=== PATIENT | female | born 1990 | race Caucasian/White ===

== ENCOUNTER 2023-01-06 07:50 | Inpatient (IN) | payer OTHER ==
[2023-01-05 12:39] VITALS: BMI 29.2
[2023-01-06] MEDS ORDERED: CITRIC ACID-SODIUM CITRATE 15 ML CUP PO ONE (08:18)
[2023-01-06] MEDS ORDERED: OXYTOCIN 10 UNIT/ML 1 ML VIAL IM PRN (08:18)
[2023-01-06] MEDS ORDERED: TRANEXAMIC 1,000 MG/100ML-NACL 1,000 MG in EMPTY BAG 1 BAG IV PRN (08:18)
[2023-01-06] MEDS ORDERED: miSOPROStoL 200 MCG TAB PO PRN (08:18)
[2023-01-06] MEDS ORDERED: CARBOPROST TROMETHAMINE 250 MCG/ML 1 ML AMP IM PRN (08:18)
[2023-01-06] MEDS ORDERED: METHYLERGONOVINE 0.2 MG/ML 1 ML AMP IM PRN (08:18)
[2023-01-06 08:32] LABS: Basophils % (A) 0 %; Eosinophils # (A) 0.1 k/uL (0-0.7); Eosinophils % (A) 1 %; HCT 36.7 % (34.0-46.0); HGB 13.3 gm/dL (11.4-16.0); Lymphocytes # (A) 1.5 k/uL (1.0-4.8); Lymphocytes % (A) 19 %; MCH 34.2 pg (25.0-35.0); MCHC 36.2 g/dL (31.0-37.0); MCV 94.4 fL (80.0-100.0); Mean Platelet Volume 8.7; Monocytes # (A) 0.3 k/uL (0-1.0); Monocytes % (A) 4 %; Neutrophils # (A) 5.6 k/uL (1.3-7.7); Neutrophils % (A) 72 %; Platelet Count 151 k/uL (150-450); RBC 3.89 m/uL (3.80-5.40); RDW 12.9 % (11.5-15.5); WBC 7.7 k/uL (3.8-10.6)
--- NOTE | 2023-01-06 09:36 | P.HPOB ---
History of Present Illness H&P Date: 01/06/23 Chief Complaint: Repeat section Ms. Moses is a 32 year old at 39 weeks and 0 days with EDC of 01/13/2023 (by LMP consistent with 7 week US) who presents to labor and delivery for scheduled repeat section. The has been complicated by Anti-Jka (Spence) Antibody positive antibody screen that has been too weak to titer. Left renal pelvic dilation was also noted on anatomy US. At 32 weeks the fetus was measuring in the 36%ile for growth. Additionally, the patient is Rh negative status and did receive rhogam on 08/15/2022. Finally, there is a 6 centimeter anterior subserosal fibroid noted in the left lateral lower uterine segment on ultrasound. Obstetric history: 1 FTCS secondary to breech presentation, 2 SABs. work-up: blood type is A negative, antibody screen positive for Anti- Jka (Spence) Antibody (too weak to titer), rubella immune, VDRL non-reactive, HBsAg negative, HIV negative, HCV Ab negative, gonorrhea negative, chlamydia negative, GBS negative. Past medical history: history of abnormal pap smear. Past Medical History Past Medical History: No Reported History History of Any Multi-Drug Resistant Organisms: None Reported Past Surgical History: Section Past Anesthesia/Blood Transfusion Reactions: No Reported Reaction Past Psychological History: No Psychological Hx Reported Smoking Status: Former smoker Additional Past Alcohol Use History / Comment(s): PRIOR TO -SOCIALLY Past Drug Use History: None Reported - Past Family History Mother Family Medical History: No Reported History Medications and Allergies Home Medications Medication Instructions Recorded Confirmed Type Aspirin [Adult Low Dose Aspirin EC] 81 mg PO DAILY 01/05/23 01/05/23 History Vit No.179/Iron/Folic 1 each PO DAILY 01/05/23 01/05/23 History [ Tablet] Allergies Allergy/AdvReac Type Severity Reaction Status Date / Time No Known Allergies Allergy Verified 01/05/23 12:16 Exam Vital Signs Temp Pulse Resp BP Pulse Ox 01/06/23 08:18 98.1 F 80 18 137/80 98 Intake and Output 01/05/23 01/06/23 01/06/23 22:59 06:59 14:59 Other: Weight 68.039 kg Results Result Diagrams: 01/06/23 08:16
[2023-01-06] MEDS ORDERED: NALBUPHINE 10 MG/ML (10 ML MDV) ONE (09:40)
[2023-01-06] MEDS ORDERED: OXYTOCIN 30 UNITS/500 ML NS BAG IV ONE (09:40)
[2023-01-06] MEDS ORDERED: ONDANSETRON 4 MG/2 ML VIAL ONE (09:40)
[2023-01-06] MEDS ORDERED: MORPHINE SULFATE (PF) 0.3 MG/0.3 ML SYR ONE (09:40)
[2023-01-06] MEDS ORDERED: KETOROLAC 15 MG/ML 1 ML VIAL ONE (09:40)
[2023-01-06] MEDS ORDERED: fentaNYL (PF) 50 MCG/ML 2 ML AMP ONE (09:40)
--- NOTE | 2023-01-06 11:15 | P.OP ---
Date of Procedure: 01/06/23 Preoperative Diagnosis: 1. Term IUP at 39 weeks and 1 day 2. History of prior section 3. Does not desire TOLAC 4. Large lower uterine segment fibroid, estimated 6 centimeters Postoperative Diagnosis: Same Procedure(s) Performed: Repeat Lower Transverse Section Implants: None Anesthesia: spinal Surgeon: Jessica Martinez General Maintenance Engineer #1: Rachell Arnold Estimated Blood Loss (ml): 950 IV fluids (ml): 1,200 Urine output (ml): 200 Pathology: none sent Condition: stable Disposition: floor Indications for Procedure: Ms. Moses is a 32 year old at 39 weeks and 1 day presenting for scheduled repeat section. The risks, benefits, and alternatives to section were discussed with the patient including risk of bleeding, infection, damage to surrounding structures including bladder/bowels/ureters, and post- operative VTE. The patient understands these risks and desires to proceed with section. Operative Findings: Severe pelvic adhesive disease. Large, 6 centimeter left lateral lower uterine segment fibroid. An anterior, 2 centimeter anterior pedunculated fibroid is also present. Normal bilateral fallopian tubes and ovaries. Description of Procedure: The patient was taken to the operating room where spinal anesthesia was found to be adequate. Two grams of Ancef were given for infection prophylaxis. She was prepared and draped in the dorsal supine position with a leftward tilt. A Pfannenstiel skin incision was made with the scalpel. The incision was carried down to the fascia with a bovie. The fascia was incised and extended laterally with Sparks scissors. The superior aspect of the fascia was grasped with Maxime clamps. The underlying rectus muscle was dissected off sharply with Sparks scissors. In a similar fashion, the inferior aspect of the fascia was elevated with Maxime clamps and the rectus muscle and pyramidalis were dissected off. Excellent hemostasis was achieved with the bovie. The rectus muscle was in the midline down to the level of the pubic symphysis. Pre- peritoneal fatty tissue was bluntly dissected to expose the peritoneum. The peritoneum was found to be free of adherent bowel and entered sharply with Sparks scissors. The peritoneal incision was extended superiorly and inferiorly to the bladder reflection with good visualization of the bladder. The bladder blade was inserted and vesicouterine peritoneum was identified. Intraabdominal survey revealed scant, clear peritoneal fluid and the thinned-out lower uterine segment. TThe bladder blade was repositioned to keep the bladder out of the operative field. A large left lateral lower uterine segment fibroid was present. The lower uterine segment was incised with a scalpel, taking care to avoid the fibroid as much as possible. The amniotic sac was ruptured with an Allis clamp and clear fluid was noted. The uterine incision was extended bluntly with lateral and upward traction. The fetus was in left occiput transverse position. The head was elevated out of the pelvis with special attention paid to avoid using the uterine incision as a fulcrum. Gentle fundal pressure was applied once the head was brought into the incision. The infant was delivered with no difficulty. The mouth and nose were suctioned with a bulb. The cord was clamped and cut. was noted to be spontaneously crying. The infant was handed off to the roster clerk. IV oxytocin was initiated to facilitate uterine contractions. The placenta was delivered intact with manual massage of uterine fundus. The uterus was then exteriorized and the inside of the uterus was gently wiped with a lap sponge to assure complete removal of placental membranes. The uterine incision was closed with a 0-Polysorb suture in a running locked fashion. A second imbricating layer of 0-Polysorb was placed along the incision in a locked fashion for hemostasis. Several figure of eight sutures were placed along the center of the hysterotomy for hemostasis. The ovaries and tubes were found to be normal. The uterus, tubes, and ovaries were then gently returned to the abdominal cavity. At this time, Surgicel Powder was placed along the incision for bleeding prophylaxis. The blood clots and fluid were wiped out of the abdomen and pelvis with moist laparotomy sponges. The pelvis was copiously suction irrigated.The uterine incision was reinspected and excellent hemostasis was noted. The fascial layer was closed with a 0-Vicryl suture. The subcutaneous tissue was reapproximated with 2-0 Plain Gut. The skin was closed with 4-0 Monocryl in a subcuticular fashion.The patient tolerated the procedure well. All the counts were correct times two. The patient was taken to the recovery room in a stable condition.
[2023-01-06] MEDS ORDERED: ONDANSETRON 4 MG/2 ML VIAL IVP PRN (11:16)
[2023-01-06] MEDS ORDERED: METOCLOPRAMIDE 5 MG/ML 2 ML VIAL IVP PRN (11:16)
[2023-01-06] MEDS ORDERED: Rhogam IMMUNE GLOBULIN 1,500 UNIT/1 ML IM ONE (11:16)
[2023-01-06] MEDS ORDERED: diphenhydrAMINE 50 MG CAP PO PRN (11:16)
[2023-01-06] MEDS ORDERED: NALOXONE 0.4 MG/ML 1 ML VIAL IV PRN (11:16)
[2023-01-06] MEDS ORDERED: SIMETHICONE 80 MG CHEWABLE PO PRN (11:16)
[2023-01-06] MEDS ORDERED: diphenhydrAMINE 50 MG/ML 1 ML VIAL IVP PRN ×2 (11:16)
[2023-01-06] MEDS ORDERED: ZOLPIDEM 5 MG TAB PO PRN (11:16)
[2023-01-06] MEDS ORDERED: diphenhydrAMINE 25 MG CAP PO PRN (11:16)
[2023-01-06] MEDS: METHYLERGONOVINE 0.2 MG TAB PO SCH ×3 (12:08→21:58)
[2023-01-06] MEDS: LACTATED RINGERS 1,000 ML IV SCH (13:57)
[2023-01-06] MEDS: ACETAMINOPHEN TAB 500 MG TAB PO SCH ×2 (14:47→20:31)
[2023-01-06 17:55] LABS: Basophils % (A) 0 %; Eosinophils % (A) 0 %; HCT 33.4 % (34.0-46.0); Lymphocytes # (A) 1.2 k/uL (1.0-4.8); Lymphocytes % (A) 9 %; MCH 34.1 pg (25.0-35.0); MCHC 35.7 g/dL (31.0-37.0); MCV 95.5 fL (80.0-100.0); Mean Platelet Volume 8.8; Monocytes # (A) 0.3 k/uL (0-1.0); Monocytes % (A) 3 %; Neutrophils # (A) 11.3 k/uL (1.3-7.7); Neutrophils % (A) 86 %; Platelet Count 139 k/uL (150-450); RDW 12.8 % (11.5-15.5); WBC 13.3 k/uL (3.8-10.6)
[2023-01-06] MEDS: KETOROLAC 15 MG/ML 1 ML VIAL IVP SCH (18:02)
[2023-01-06] MEDS: SENNOSIDES-DOCUSATE SODIUM 1 EACH TAB PO SCH (20:31)
[2023-01-07] MEDS: KETOROLAC 15 MG/ML 1 ML VIAL IVP SCH ×2 (00:27→06:40)
[2023-01-07] MEDS: ACETAMINOPHEN TAB 500 MG TAB PO SCH ×4 (04:29→20:01)
[2023-01-07 05:59] LABS: Basophils % (A) 0 %; Eosinophils # (A) 0.1 k/uL (0-0.7); Eosinophils % (A) 1 %; HCT 29.1 % (34.0-46.0); HGB 10.3 gm/dL (11.4-16.0); Lymphocytes # (A) 0.9 k/uL (1.0-4.8); Lymphocytes % (A) 8 %; MCH 33.8 pg (25.0-35.0); MCHC 35.5 g/dL (31.0-37.0); MCV 95.3 fL (80.0-100.0); Mean Platelet Volume 8.9; Monocytes # (A) 0.3 k/uL (0-1.0); Monocytes % (A) 3 %; Neutrophils % (A) 85 %; Platelet Count 112 k/uL (150-450); RBC 3.05 m/uL (3.80-5.40); RDW 13.4 % (11.5-15.5); WBC 10.6 k/uL (3.8-10.6)
--- NOTE | 2023-01-07 06:33 | P.PN ---
Progress Note - Text Progress Note Date: 01/07/23 S/p under spinal analgesia with Astramorph 300 g for postop pain. T jose antonio patient is comfortable sitting in her bed. Today patient rated her pain level 2 out of 10 in severity. Mild Itching yesterday. Denied any fever, drowsiness, confusion. Denied any weakness, tingling sensation in her lower extremities. Denied any bowel or bladder problems. Moving all extremities without any difficulty. Able to walk without any difficulties. Vitals: Hemodynamically stable Continue oral pain medication as per primary team.
[2023-01-07] MEDS: METHYLERGONOVINE 0.2 MG TAB PO SCH ×2 (08:47→14:36)
--- NOTE | 2023-01-07 09:40 | P.PNOBGPC ---
Subjective - Subjective Principal diagnosis: POD 1 Patient reports: Reports appetite normal, Reports voiding normally, Reports pain well controlled, Reports ambulating normally : doing well, nursing well Objective - Vital Signs Latest vital signs: Vital Signs Temp Pulse Resp BP Pulse Ox 01/07/23 04:00 98.0 F 84 16 107/60 01/07/23 00:00 98.1 F 85 16 105/60 01/06/23 20:00 98.2 F 86 16 118/69 01/06/23 14:58 98.2 F 80 16 140/81 98 01/06/23 13:16 77 16 128/80 99 01/06/23 12:46 71 16 137/82 99 01/06/23 12:09 71 16 108/68 98 01/06/23 11:53 65 16 145/65 97 01/06/23 11:41 66 16 155/66 98 01/06/23 11:28 63 16 126/87 100 01/06/23 11:16 96.1 F L 66 16 126/83 98 Intake and Output 01/06/23 01/07/23 01/07/23 22:59 06:59 14:59 Output Total 300 Balance -300 Output: Urine 300 Other: # Voids 1 2 - Exam Extremities: Present: normal. Absent: tenderness Abdomen: Present: normal appearance, soft. Absent: tenderness Incision: Present: normal, dry, intact. Absent: erythematous Uterus: Present: normal, firm. Absent: tenderness - Labs Labs: Abnormal Lab Results - Last 24 Hours (Table) 01/06/23 01/07/23 Range/Units 17:30 05:20 WBC 13.3 H (3.8-10.6) k/uL RBC 3.50 L 3.05 L (3.80-5.40) m/uL Hgb 10.3 L (11.4-16.0) gm/dL Hct 33.4 L 29.1 L (34.0-46.0) % Plt Count 139 L 112 L (150-450) k/uL Neutrophils # 11.3 H 9.0 H (1.3-7.7) k/uL Lymphocytes # 0.9 L (1.0-4.8) k/uL Assessment and Plan (1) Pelvic peritoneal adhesions, female Current Visit: Yes Status: Acute Code(s): N73.6 - FEMALE PELVIC PERITONEAL ADHESIONS (POSTINFECTIVE) SNOMED Code(s): 33017342 (2) Rh negative, delivered, current hospitalization Current Visit: Yes Status: Acute Code(s): O26.899 - OTH RELATED CONDITIONS, UNSPECIFIED TRIMESTER; Z67.91 - UNSPECIFIED BLOOD TYPE, RH NEGATIVE SNOMED Code(s): 474977532 (3) S/P repeat low transverse Current Visit: Yes Status: Acute Code(s): Z98.891 - HISTORY OF UTERINE SCAR FROM PREVIOUS SURGERY SNOMED Code(s): 868508320 (4) Uterine fibroid during , delivered, current hospitalization Current Visit: Yes Status: Acute Code(s): O34.10 - MATERNAL CARE FOR BENIGN TUMOR OF CORPUS UTERI, UNSP TRI; D25.9 - LEIOMYOMA OF UTERUS, UNSPECIFIED SNOMED Code(s): 157637062 Plan: Postop day 1 status post repeat low transverse section. Recovering well. Routine care.
[2023-01-07] MEDS: LACTATED RINGERS 1,000 ML IV SCH (10:12)
[2023-01-07] MEDS: SENNOSIDES-DOCUSATE SODIUM 1 EACH TAB PO SCH ×2 (10:13→20:02)
[2023-01-07] MEDS ORDERED: IBUPROFEN 600 MG TAB PO SCH (17:30)
[2023-01-07] MEDS: IBUPROFEN 600 MG TAB PO SCH (23:53)
[2023-01-08] MEDS: ACETAMINOPHEN TAB 500 MG TAB PO SCH ×2 (01:34→09:52)
[2023-01-08] MEDS: SENNOSIDES-DOCUSATE SODIUM 1 EACH TAB PO SCH (08:07)
[2023-01-08] MEDS: IBUPROFEN 600 MG TAB PO SCH (08:07)
[2023-01-08 08:52] VITALS: BP 111/49; PULSE 92; RESP 16; TEMP 97.7
--- NOTE | 2023-01-08 11:05 | P.DS ---
Providers Date of admission: 01/06/23 07:50 Expected date of discharge: 01/08/23 Attending physician: Jessica Martinez MD Primary care physician: Michela Chu - Discharge Diagnosis(es) (1) Pelvic peritoneal adhesions, female Current Visit: Yes Status: Acute (2) Rh negative, delivered, current hospitalization Current Visit: Yes Status: Acute (3) S/P repeat low transverse Current Visit: Yes Status: Acute (4) Uterine fibroid during , delivered, current hospitalization Current Visit: Yes Status: Acute Hospital Course: This is a 32 year old 4 now para 20-2 woman who is admitted at 39 weeks gestation for planned repeat low transverse section. The had been complicated by findings of anti-JK a antibody positive, left renal dilation and findings of very uterine anterior segment fibroid. Please see the admission history and physical for details. Following admission she went to the operating room where she underwent a repeat low transverse section. Findings at the time of surgery were significant for a large anterior subserosal and intramural fibroid. This led to a difficult closure of the incision. Please see the operative report for details. EBL from the procedure was 950 mL's. Findings at the time of surgery were significant for a liveborn male with Apgars of 9 at 1 minute and 9 at 5 minutes. The patient's course was unremarkable. By post operative day #1 she was ambulating and voiding without difficulty. She did have some bladder discomfort. Her lochia was moderate and her postoperative blood counts were within normal limits. By postoperative day #2 she continued to do very well. Her pain was well-controlled with oral pain medications. Her lochia was minimal and she was ambulating and voiding without difficulty. She was therefore discharged home with routine instructions for postoperative care and follow-up. Plan - Discharge Summary Discharge Rx Participant: No New Discharge Prescriptions: New Ibuprofen [Motrin] 600 mg PO Q6H PRN #30 tab PRN Reason: Pain Acetaminophen Tab [Tylenol] 1,000 mg PO Q6H PRN #30 tab PRN Reason: Pain Discontinued Aspirin [Adult Low Dose Aspirin EC] 81 mg PO DAILY No Action Vit No.179/Iron/Folic [ Tablet] 1 each PO DAILY Discharge Medication List Vit No.179/Iron/Folic [ Tablet] 1 each PO DAILY 01/05/23 [History] Acetaminophen Tab [Tylenol] 1,000 mg PO Q6H PRN #30 tab 01/08/23 [Rx] Ibuprofen [Motrin] 600 mg PO Q6H PRN #30 tab 01/08/23 [Rx] Follow up Appointment(s)/Referral(s): Jessica Martinez MD [STAFF PHYSICIAN] - 2 Weeks Activity/Diet/Wound Care/Special Instructions: Follow-up in 2 weeks after surgery in the office. Call the office with any concerning signs or symptoms including fever greater than 101, severe abdominal pain, heavy vaginal bleeding, signs of wound infection, increased swelling or redness of the lower extremities, signs of depression. No driving for 2 weeks after surgery. No heavy lifting or vigorous activity until reevaluated in the office. No intercourse for 6 weeks after delivery. Discharge Disposition: HOME SELF-CARE
== END 2023-01-08 11:45 | disposition home or self-care (01) | DRG 540 ==
LOC: 4FBP 07:50
PROVIDERS: ADMIT Obstetrics & Gynecology; ATTEND Obstetrics & Gynecology
PROC: 10D00Z1 Extraction of Products of Conception, Low, Open Approach (ICD-10-PCS; principal; 2023-01-06 10:00)
DX: O34.211 Maternal care for low transverse scar from previous cesarean delivery (principal); O36.1930 Maternal care for other isoimmunization, third trimester, not applicable or unspecified; O34.13 Maternal care for benign tumor of corpus uteri, third trimester; D25.2 Subserosal leiomyoma of uterus; D25.1 Intramural leiomyoma of uterus; O34.593 Maternal care for other abnormalities of gravid uterus, third trimester; O32.2XX0 Maternal care for transverse and oblique lie, not applicable or unspecified; O99.892 Other specified diseases and conditions complicating childbirth; N73.6 Female pelvic peritoneal adhesions (postinfective); O99.73 Diseases of the skin and subcutaneous tissue complicating the puerperium; L29.9 Pruritus, unspecified; Z87.891 Personal history of nicotine dependence; Z79.82 Long term (current) use of aspirin; Z28.310 Unvaccinated for COVID-19; Z67.11 Type A blood, Rh negative; Z3A.39 39 weeks gestation of pregnancy; Z37.0 Single live birth
CPT/HCPCS: 85025; 86850; 86870; 86880; 86900; 86901; 86902